=== PATIENT | male | born 1995 | race Caucasian/White ===

== ENCOUNTER → 2016-03-31 | Outpatient (CLI) | payer OTHER ==
[~2016-03-31] MED LIST: KETO10TA PO; OXYC-57 PO
--- NOTE | 2016-03-31 09:53 | DIAGNOSTIC IMAGING REPORT ---
LEFT SHOULDER MIN 2 VIEWS ROUTINE CLINICAL HISTORY: Left shoulder pain. History of prior dislocation. COMPARISON: None. DISCUSSION: No fractures or dislocations are visualized. There are no erosive or destructive changes. There is no evidence for soft tissue swelling. IMPRESSION: No fractures or dislocations identified. Electronically signed by: Jacky Mccarty M.D. 03/31/2016 9:52 AM Dictated Date/Time: 03/31/2016 9:51 AM
== END | disposition home or self-care (01) ==
LOC: C.RAD1850 09:30
PROVIDERS: ATTEND Family Medicine
DX: M25.512 Pain in left shoulder (principal)

== ENCOUNTER → 2016-06-23 | Outpatient (CLI) | payer OTHER ==
--- NOTE | 2016-06-23 12:48 | DIAGNOSTIC IMAGING REPORT ---
ORBIT RADIOGRAPHS 3 VIEWS HISTORY: pre-MRI screening. COMPARISON: None. FINDINGS: There are no radiopaque foreign bodies identified within the orbits. IMPRESSION: No radiopaque foreign bodies identified within the orbits. Electronically signed by: Mckay Flores M.D. 06/23/2016 12:46 PM Dictated Date/Time: 06/23/2016 12:46 PM
--- NOTE | 2016-06-23 13:45 | DIAGNOSTIC IMAGING REPORT ---
FLUOROSCOPIC GUIDED LEFT SHOULDER ARTHROGRAM FLUOROSCOPY TIME: 5 seconds. A single fluoroscopic spot image. HISTORY: Left shoulder pain.. PROCEDURE: After obtaining written informed consent, the patient was placed supine on the fluoroscopy table. A suitable site for needle insertion was marked using fluoroscopic guidance. The left shoulder was prepped and draped in the usual sterile fashion. 1% lidocaine was used for skin, subcutaneous and deep soft tissue anesthesia. Under intermittent fluoroscopic guidance, a 22 gauge 2.5 inch spinal needle was inserted into the left glenohumeral joint. A total of 14 cc of one-to-one mixture of dilute Magnevist (0.1 cc in 10 cc saline) and Optiray 300 were injected. The needle was then removed. There were no apparent complications. The patient was transported to for further imaging. IMPRESSION: Fluoroscopic-guided left shoulder arthrogram without immediate complication. Total injected volume was 14 cc. MR portion of the examination will be dictated separately. Electronically signed by: Mckay Flores M.D. 06/23/2016 1:44 PM Dictated Date/Time: 06/23/2016 1:44 PM
--- NOTE | 2016-06-23 16:57 | DIAGNOSTIC IMAGING REPORT ---
MRI ARTHROGRAM OF THE LEFT SHOULDER CLINICAL HISTORY: Left shoulder pain. Tear. Recurrent dislocation. COMPARISON STUDY: Left shoulder radiographs March 31, 2016. TECHNIQUE: Following a fluoroscopically guided left shoulder arthrogram and utilizing a 1.5 Char magnet, multiplanar, multiecho imaging of the left shoulder was performed without intravenous contrast. FINDINGS: Alignment of the left shoulder is anatomic. The proximal long head of the biceps tendon is intact. There is an impaction injury of the superolateral aspect of the left humeral head consistent with a Hill-Sachs. The anterior inferior glenoid labrum is detached suggestive of a Bankart lesion. In addition, there is a tear of the posterior superior glenoid labrum which is diminutive. The findings represent a complex labral tear. There is no full-thickness rotator cuff tear. There is no tendon retraction or muscular atrophy. The rotator cuff appears intact. IMPRESSION: 1. Complex tear of the glenoid labrum, including a tear of the anterior inferior labrum which appears detached suggestive of a Bankart lesion. In addition, there is a posterior superior labral tear. 2. New Albin-Sachs deformity indicative a prior anterior shoulder dislocation. Electronically signed by: Camden Leija M.D. 06/23/2016 4:56 PM Dictated Date/Time: 06/23/2016 2:00 PM
== END | disposition home or self-care (01) ==
LOC: C.RADBC 12:28
PROVIDERS: ATTEND Orthopaedic Surgery
DX: S43.492A Other sprain of left shoulder joint, initial encounter (principal); X58.XXXA Exposure to other specified factors, initial encounter; Z01.818 Encounter for other preprocedural examination

== ENCOUNTER → 2016-07-16 | Day surgery (SDC) | payer OTHER ==
[2016-07-03 11:01] VITALS: Ht 172.7 cm; Wt 56.8 kg
[~2016-07-16] VITALS: Ht 172.7 cm; Wt 56.8 kg
[~2016-07-16] MED LIST changes: +ATROPINE SULFATE 0.1 MG/ML 5ML SYR IV PRN; +CEFAZOLIN 2000 MG/60 ML D5W IV SCH; +DEXAMETHASONE SOD INJ 4 MG/ML VIAL ONE; +EpINEphrine INJ 1MG/ML AMP 1 MG/ML AMP ONE; +FENTANYL CITRATE INJ 50 MCG/1 ML 2 ML VIAL IV PRN; +FENTANYL CITRATE INJ 50 MCG/1 ML 2 ML VIAL ONE; +KETOROLAC TROMETHAMINE 30 MG/ML VIAL IV. PRN; +LACTATED RINGER'S 1000ML 1,000 ML IV SCH; +LIDOCAINE HCL 2% 2 ML VIAL (20MG/ML) ONE; +MIDAZOLAM HCL 1 MG/ML 2ML VIAL ONE; +ONDANSETRON INJ 2 MG/ML 2 ML VIAL IV PRN; +ONDANSETRON INJ 2 MG/ML 2 ML VIAL ONE; +OXYCODONE/ACETAMINOPHEN 5-325 TAB PO PRN; +PROMETHAZINE HCL INJ 12.5 MG in SODIUM CHLORIDE 0.9% 50ML 50 ML IV PRN; +PROPOFOL IV EMULSION 10 MG/ML 20 ML VIAL IV ONE; +ROCURONIUM BROMIDE 10 MG/ML 5 ML VIAL ONE; +ROPIVACAINE 0.5% 5 MG/ML 30 ML VIAL ONE; +SODIUM CHLORIDE 0.9% 1000ML 1,000 ML IV SCH
--- NOTE | 2016-07-16 07:05 | History & Physical Bridge - [place] ---
H&P Re-Evaluation Bridge Note: I have examined the patient, reviewed the History & Physical and in the interval since the performance of the History & Physical I have noted the following changes of clinical significance: No changes noted
[2016-07-16] MEDS: BUPIVACAINE/EPINEPHRINE 0.25% 1:200,000 30 ML VIAL ONE ×2 (10:09→10:14)
--- NOTE | 2016-07-16 10:38 | [facility] Post Operative Brief Note ---
Immediate Operative Summary Operative Date Jul 16, 2016. Pre-Operative Diagnosis Chronic Dislocation Left Shoulder Post-Operative Diagnosis Same Procedure(s) Performed Left Shoulder Arthroscopy, Anterior Labral Repair, Open Biceps Tenodesis Surgeon Dr. Cifuentes Department Mgr Surgeon(s) Ezra Ponce PA-C Estimated Blood Loss 5 mL Findings as above Specimens None Complication(s) None Disposition Recovery Room / PACU
--- NOTE | 2016-07-16 10:53 | Discharge Instructions-SurgCtr ---
Discharge Instructions Date of Service Jul 16, 2016. Visit Reason for Visit: Recurrent Dislocation Left Shoulder Discharge Discharge Diagnosis / Problem: SAME ABOVE Discharge Goals Goal(s): Decrease discomfort, Improve function Activity Recommendations Activity Limitations: as noted below Lifting Limitations: until after follow-up appointment Exercise/Sports Limitations: until after follow-up appointment Anesthesia . Post Anesthesia Instructions: If you have had General Anesthesia or IV Sedation: * Do not drive today. * Resume driving when surgeon permits. * Do not make important decisions or sign legal documents today. * Call surgeon for: 1. Temperature elevations greater than 101 degrees F. 2. Uncontrollable pain. 3. Excessive bleeding. 4. Persistent nausea and vomiting. 5. Medication intolerance (nausea, vomiting or rash). * For nausea and vomiting use only clear liquids such as: tea, soda, bouillon until nausea subsides, then gradually increase diet as tolerated. * If you have any concerns or questions, call your surgeon's office. If physician is unavailable and it is an emergency, call 911 or go to the nearest emergency room. . Instructions / Follow-Up Instructions / Follow-Up MEDICATIONS: * Resume previous medications unless instructed otherwise by your surgeon. * Always take pain medication on a full stomach or with food to avoid upset stomach. * Do not drink alcohol or drive while taking narcotics. * Ibuprofen or Tylenol may be taken if narcotic not needed. SPECIAL CARE INSTRUCTIONS: __ None _X_ Keep extremity elevated and iced x 48 hours; apply ice 20-30 minutes 8-10 times/day. May remove at night. _X_ Sling (MAY REMOVE AFTER 48 HOURS ONLY TO SHOWER AND FOR THERAPY) _X_24 hrs/day __ Remove at night __ Shoulder Immobilizer __ 24 hrs/day __ Remove at night _X_ Dressing __ Maintain until seen in office, may shower with plastic over site _X_ Remove dressings in 24-48 hours and then may shower _X_ Cover incisions with band-aids after showering __ Do not remove steri-strips Call physician if chills or temperature rises above 102 degrees or pain unrelieved by prescribed pain medications at . . Diet Recommendations Home Diet: no limitations Fluid Restriction: None Procedures Procedures Performed: Left Shoulder Arthroscopy, Anterior Labral Repair, Open Biceps Tenodesis Pending Studies Studies pending at discharge: no Work Instructions Return To Work: after follow-up Lifting Limitations: NO LIFTING WITH LEFT ARM Medical Emergencies . Who to Call and When: Medical Emergencies: If at any time you feel your situation is an emergency, please call 911 immediately. . Non-Emergent Contact Non-Emergency issues call your: Primary Care Provider Call Non-Emergent contact if: you have a fever, temperature is above 101.5 . . "Provider Documentation" section prepared by Godfrey Ponce. .
[2016-07-16 11:06] VITALS: TEMP 36.8
[2016-07-16 11:29] VITALS: BP 115/72; PULSE 47; O2SAT 100
--- NOTE | 2016-07-16 11:42 | Anesthesia Progress Nt - [facility] ---
Anesthesia Post Op Note Date & Time Jul 16, 2016 at 11:41 Vital Signs Pain Intensity: 0 Vital Signs Past 12 Hours Date Time Temp Pulse Resp B/P Pulse Ox O2 Delivery O2 Flow Rate FiO2 07/16/16 11:29 47 16 115/72 100 Room Air 07/16/16 11:06 36.8 52 16 106/64 96 Room Air 07/16/16 10:54 36.6 62 20 123/83 96 Room Air 07/16/16 10:53 44 18 07/16/16 10:53 44 18 95 07/16/16 10:50 113/67 07/16/16 10:48 45 22 97 07/16/16 10:48 46 22 07/16/16 10:45 108/66 07/16/16 10:44 Room Air 07/16/16 10:43 60 14 07/16/16 10:43 61 14 97 07/16/16 10:40 113/69 07/16/16 10:38 46 18 07/16/16 10:38 45 18 98 07/16/16 10:35 117/58 07/16/16 10:33 40 15 99 07/16/16 10:33 40 15 07/16/16 10:31 110/54 07/16/16 10:28 59 18 99 07/16/16 10:28 59 18 07/16/16 10:27 113/67 07/16/16 10:25 123/83 07/16/16 10:23 36.8 62 20 123/83 99 Diffusion Mask 6 07/16/16 08:15 129/84 07/16/16 08:14 67 07/16/16 08:14 68 15 99 07/16/16 08:13 47 14 100 07/16/16 08:13 55 07/16/16 08:11 143/96 07/16/16 08:08 68 07/16/16 08:08 67 9 100 07/16/16 08:05 127/114 07/16/16 08:03 81 16 100 07/16/16 08:03 75 07/16/16 08:00 125/86 07/16/16 07:58 54 9 100 07/16/16 07:58 58 07/16/16 07:55 116/74 07/16/16 07:53 80 47 100 07/16/16 07:53 81 07/16/16 07:50 128/78 07/16/16 07:48 66 40 100 07/16/16 07:48 64 07/16/16 07:45 124/86 07/16/16 07:43 90 38 137/86 100 07/16/16 07:43 85 07/16/16 07:43 73 16 137/86 100 Room Air 5 Mask 07/16/16 07:40 63 16 136/80 97 Room Air 07/16/16 07:08 49 0 07/16/16 07:03 73 0 07/16/16 06:58 57 0 07/16/16 06:53 0 07/16/16 06:48 0 07/16/16 06:26 37 60 16 125/78 100 Room Air Notes Mental Status: alert / awake / arousable, participated in evaluation Pt Amnestic to Procedure: Yes Nausea / Vomiting: adequately controlled Pain: adequately controlled Airway Patency, RR, SpO2: stable & adequate BP & HR: stable & adequate Hydration State: stable & adequate Anesthetic Complications: no major complications apparent
--- NOTE | 2016-07-16 13:44 | OPERATIVE REPORT ---
DATE OF OPERATION: 07/16/2016 PREOPERATIVE DIAGNOSIS: Recurrent dislocations of the left shoulder. POSTOPERATIVE DIAGNOSIS: Anterior Bankart tear of the left shoulder with type 4 SLAP tear. PROCEDURE: Left shoulder diagnostic arthroscopy with Bankart repair and open subpectoral biceps tenodesis. SURGEON: Dr. Terrell Cifuentes. ANTENNA DESIGN ENGINEER: Jm Ponce PA-C, whose assistance was necessary for help positioning the arm and helping with instrumentation. ANESTHESIA: General with left interscalene nerve block. COMPLICATIONS: None. CONDITION: Stable to PACU. INDICATIONS: Devyn is a very pleasant 20-year-old male who has been having recurrent dislocations of his left shoulder. MRI and clinical examination were diagnostic for anterior labral tear. After failing conservative treatment, he elected to undergo arthroscopy. OPERATION AND FINDINGS: On 07/16/2016 he arrived at [facility] for the above procedure. He was seen in the preoperative holding area and the operative extremity was identified and signed. Given her preoperative antibiotic and a left interscalene nerve block. He was taken back to the operating room, laid on the table in supine position and put under general anesthesia. He was then put in the lateral decubitus position and the left arm was brought out to an Arthrex 3-point distractor. The left shoulder was then prepped and draped in sterile fashion. Time-out was done and the patient and operative extremity was properly identified. A scope was put into the posterior portal. Diagnostic arthroscopy showed a small Hill-Sachs lesion of the posterior superior humeral head. I do not see any bony abnormalities of the glenoid. Cartilage was intact. There was a little fraying on the articular side of the rotator cuff. The biceps tendon went through a normal size biceps kristine mechanism. There was a type 4 SLAP tear of the superior labrum that extended into the long head of the biceps tendon. There was a complete tear of the anterior labrum from the 6:[address] up through the superior SLAP tear. A Zakia cannula was placed in the rotator interval and a 6 mm cannula was placed in a superior portal. A 5 mm percutaneous cannula was then placed at the 5 o'clock portal. The anterior rim of the glenoid was then prepared with a ring curette and a ball rasp and a shaver down to bleeding bone. The labrum was then fixed with Arthrex 2.9 mm BioComposite PushLock anchors and labral tape. This was done in a knotless fashion. Labral tape was passed around the labrum to do labral repair as well as a small capsular shift. An anchor was placed into the 6:30 position, 7:30, 8:30 9:30 and 10:30 positions. Five anchors were used in total. I was able to get a nice repair and complete restorationist anterior inferior glenohumeral ligament. 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 The biceps tendon was then tenotomized arthroscopically and the unstable labrum of the superior and posterior aspects of the tear were debrided back. Final arthroscopic images were taken. Arthroscopic instruments were removed from the shoulder. Attention was turned to an open biceps tenodesis. A small incision was made over the inferior border of the pec major. Dissection was taken down through the fascia and the long head of biceps tendon was delivered out of the wound. The tendon was then whip stitched at the anticipated level of tenodesis and the remainder of the tendon was discarded. A 5 mm hole was drilled in the bicipital groove and the biceps tendon was tenodesed with an Arthrex biceps button that was passed through the posterior cortex in a tension slide technique to deliver the tendon into the 5 mm hole. This gave good fixation. The tails were then tied and cut. The wound was then irrigated and closed with 3-0 Vicryl and running 3-0 Monocryl. Steri-strips were placed. Portal sites were closed with 3-0 nylon. He was then placed in a soft dressing and a regular arm sling. He was then extubated, transferred to a [facility] and taken to the postanesthesia care unit in stable condition. He tolerated the procedure well. I attest to the content of the Intraoperative Record and any orders documented therein. Any exceptio ns are noted below.
== END | disposition home or self-care (01) ==
LOC: X.SURG 06:15
PROVIDERS: ATTEND Orthopaedic Surgery
DX: M24.412 Recurrent dislocation, left shoulder (principal)